=== PATIENT | male | born 1960 | race Hispanic/Latino ===

== ENCOUNTER 2024-10-06 10:26 | Emergency (ER) | payer MEDICARE ==
[~2024-10-06] VITALS: Ht 172.7 cm; Wt 97.5 kg
[2024-10-06 10:37] VITALS: PULSE 72; RESP 16; TEMP 98.4; O2SAT 100
[2024-10-06] MEDS ORDERED: CEFDINIR300 MG PO (10:49)
[2024-10-06] MEDS ORDERED: PYRIDIUM100 MG PO (10:49)
== END 2024-10-06 10:54 | disposition home or self-care (01) ==
LOC: ER 10:30
DX: R30.0 Dysuria (principal); N39.0 Urinary tract infection, site not specified; R31.9 Hematuria, unspecified; E11.9 Type 2 diabetes mellitus without complications; E03.9 Hypothyroidism, unspecified
CPT/HCPCS: 99283